=== PATIENT | male | born 1965 | race Caucasian/White ===

== ENCOUNTER 2016-07-16 13:56 | Outpatient (CLI) | payer OTHER | END 2016-07-16 13:57 | disposition home or self-care (01) | DX: F07.81 Postconcussional syndrome (principal); S09.90XD Unspecified injury of head, subsequent encounter ==

== ENCOUNTER 2016-08-06 12:53 | Outpatient (CLI) | payer OTHER | END 2016-08-06 12:54 | disposition home or self-care (01) | DX: I20.9 Angina pectoris, unspecified (principal); R52 Pain, unspecified; R07.89 Other chest pain ==